=== PATIENT | female | born 1980 | race African-American/Black ===

== ENCOUNTER 2024-11-06 22:07 | Inpatient (IN) | payer OTHER, MEDICAID ==
[~2024-11-06] VITALS: Ht 149.9 cm; Wt 115.7 kg
[2024-11-06] MEDS: ASPIRIN 81MG TABLET PO ONE (23:35)
[2024-11-07] VITALS (7 sets, daily range): BP systolic 129–192; BP diastolic 72–111; PULSE 72–91; RESP 16–20; TEMP 36.2–36.8; O2SAT 98–100
[2024-11-07 00:24] LABS: BASOPHILS % 0.7 % (0.0-2.0); EOSINOPHILS % 1.6 % (0.0-5.0); HEMATOCRIT. 35.8 % (36.0-48.0); HEMOGLOBIN. 11.4 g/dL (12.0-16.0); LYMPHOCYTES % 38.6 % (20.0-50.0); MEAN PLATELET VOLUME 9.4 fl (7.4-10.4); MONOCYTES % 5.6 % (2.0-8.0); NEUTROPHILS % 53.5 % (40.0-76.0); PLATELET 301 x1000/uL (130-400); RED BLOOD CELL COUNT 4.34 mill/uL (4.2-5.4); RED CELL DISTRIBUTION WIDTH 14.4 % (11.6-14.6)
[2024-11-07 00:42] LABS: CREATININE 0.7 mg/dL (0.6-1.0); UREA NITROGEN BLOOD 6 mg/dL (9-23)
[2024-11-07 00:43] LABS: TROPONIN I HIGH SENSITIVITY < 4 ng/L (3.0-34)
[2024-11-07] MEDS ORDERED: IOHEXOL-350 100 ML BOTTLE ONE (02:03)
[2024-11-07 02:49] LABS: TROPONIN I HIGH SENSITIVITY < 4 ng/L (3.0-34)
[2024-11-07] MEDS ORDERED: NALOXONE HCL 0.4MG/ML VIAL IV PRN (03:45)
[2024-11-07] MEDS: AMLODIPINE 10MG TABLET PO SCH (03:47)
[2024-11-07] MEDS: POTASSIUM CHLORIDE 20MEQ TABLET SR PO SCH (03:47)
[2024-11-07] MEDS: HYDRALAZINE HCL 50MG TABLET PO SCH (03:47)
[2024-11-07] MEDS: HYDROCODONE/ACETAMINOPHEN 5/325MG TABLET PO PRN (03:48)
[2024-11-07] MEDS ORDERED: SACU1TAB7 PO (06:51)
[2024-11-07] MEDS: LOSARTAN 50 MG TABLET PO SCH (09:16)
[2024-11-07] MEDS: ENOXAPARIN 30MG/0.3ML SYR SUBCUT SCH (09:16)
[2024-11-07] MEDS: FUROSEMIDE 40MG/4ML VIAL IVP SCH (11:50)
[2024-11-07] MEDS: ONDANSETRON HCL 4MG/2ML INJ IV PRN (11:50)
[2024-11-07 12:55] LABS: TROPONIN I HIGH SENSITIVITY < 4 ng/L (3.0-34)
[2024-11-07 14:40] LABS: CLARITY URINE CLEAR (CLEAR); COLOR URINE YELLOW (YELLOW); GLUCOSE URINE NEGATIVE (NEGATIVE); PH URINE 6.0 (4.5-8.0); PROTEIN URINE NEGATIVE (NEGATIVE); SPECIFIC GRAVITY URINE 1.042 (1.005-1.030)
[2024-11-07 14:41] LABS: KETONES URINE 1+ (NEGATIVE); LEUKOCYTE ESTERASE URINE NEGATIVE (NEGATIVE); NITRITE URINE NEGATIVE (NEGATIVE); OCCULT BLOOD URINE NEGATIVE (NEGATIVE); UROBILINOGEN URINE 0.2 E.U./dL (0.2-1.0)
[2024-11-07 15:01] LABS: *AMPHETAMINES SCREEN URINE NEGATIVE (NEGATIVE); *BARBITURATES SCREEN URINE NEGATIVE (NEGATIVE); *BENZODIAZEPINES SCREEN URINE NEGATIVE (NEGATIVE); *COCAINE SCREEN URINE NEGATIVE (NEGATIVE); CANNABINOID URINE SCREEN NEGATIVE (NEGATIVE); ECSTASY MDMA SCREEN URINE NEGATIVE (NEGATIVE); METHADONE URINE SCREEN NEGATIVE (NEGATIVE); OPIATES URINE SCREEN NEGATIVE (NEGATIVE); PHENCYCLIDINE URINE SCREEN NEGATIVE (NEGATIVE)
[2024-11-07] MEDS: ACETAMINOPHEN 325MG TABLET PO PRN (22:04)
[2024-11-08] VITALS: BP 108/65; PULSE 87; RESP 20; TEMP 36.4; O2SAT 98
[2024-11-08 04:00] VITALS: BP 102/64; PULSE 74; RESP 18; TEMP 36.6; O2SAT 97
[2024-11-08 08:00] VITALS: BP 106/66; PULSE 83; RESP 16; TEMP 36.7; O2SAT 99
[2024-11-08] MEDS: POTASSIUM CHLORIDE 20MEQ TABLET SR PO NR (11:31)
[2024-11-08 12:00] VITALS: BP 122/70; PULSE 91; RESP 16; TEMP 36.8; O2SAT 100
[2024-11-08 12:22] LABS: CREATININE 0.8 mg/dL (0.6-1.0); UREA NITROGEN BLOOD 9 mg/dL (9-23)
[2024-11-08] MEDS ORDERED: KETOROLAC 30MG/ML VIAL IV ONE (14:45)
[2024-11-08] MEDS ORDERED: KETOROLAC 30MG/ML VIAL IV PRN (14:45)
[2024-11-08 16:00] VITALS: BP 90/51; PULSE 69; RESP 16; TEMP 36.3; O2SAT 98
[2024-11-08] MEDS: FUROSEMIDE 40MG/4ML VIAL IVP SCH (18:35)
[2024-11-08 20:00] VITALS: BP 113/70; PULSE 91; RESP 18; TEMP 36.2; O2SAT 100
[2024-11-09] VITALS: BP 122/74; PULSE 86; RESP 17; TEMP 36.4; O2SAT 98
[2024-11-09 04:00] VITALS: BP 125/70; PULSE 76; RESP 17; TEMP 36.4; O2SAT 98
[2024-11-09 08:00] VITALS: BP 125/63; PULSE 83; RESP 18; TEMP 35.8; O2SAT 98
[2024-11-09 12:00] VITALS: BP 114/78; PULSE 88; RESP 17; TEMP 36.2; O2SAT 97
[2024-11-09] MEDS ORDERED: FURO-151 MT (14:43)
[2024-11-09 16:00] VITALS: BP 102/70; PULSE 80; RESP 16; TEMP 36.2; O2SAT 96
[2024-11-09 17:52] VITALS: BP 114/78; PULSE 88; TEMP 97.1; O2SAT 97
[2024-11-09 18:58] LABS: BASOPHILS % 0.4 % (0.0-2.0); EOSINOPHILS % 1.4 % (0.0-5.0); HEMATOCRIT. 39.1 % (36.0-48.0); HEMOGLOBIN. 12.6 g/dL (12.0-16.0); LYMPHOCYTES % 32.5 % (20.0-50.0); MEAN PLATELET VOLUME 10.0 fl (7.4-10.4); MONOCYTES % 9.2 % (2.0-8.0); NEUTROPHILS % 56.5 % (40.0-76.0); PLATELET 329 x1000/uL (130-400); RED BLOOD CELL COUNT 4.74 mill/uL (4.2-5.4); RED CELL DISTRIBUTION WIDTH 14.1 % (11.6-14.6)
[2024-11-09 19:17] LABS: HCG SCREEN NEGATIVE
[2024-11-09 19:28] LABS: CREATININE 0.9 mg/dL (0.6-1.0); UREA NITROGEN BLOOD 13 mg/dL (9-23)
== END 2024-11-09 19:15 | disposition home or self-care (01) | DRG 291 ==
LOC: ER 22:07 → 6WST 11-07 01:09 → EDBEDREQTM 11-07 01:11 → EDBEDREQDT 11-07 01:11 → EDBEDREQ 11-07 01:11 → ENRESERV 11-07 01:48
PROVIDERS: ADMIT Internal Medicine; ATTEND Internal Medicine
DX: I11.0 Hypertensive heart disease with heart failure (principal); I50.23 Acute on chronic systolic (congestive) heart failure; Z68.43 Body mass index [BMI] 50.0-59.9, adult; E87.6 Hypokalemia; E11.9 Type 2 diabetes mellitus without complications; E66.9 Obesity, unspecified; R07.89 Other chest pain; I25.2 Old myocardial infarction; Z71.3 Dietary counseling and surveillance
CPT/HCPCS: 36415; 71045; 71275; 80048; 80305; 81003; 83880; 84484; 84703; 85025; 85379; 93005; 93306; 99285; J1650; J1940; J2405; Q9967